=== PATIENT | female | born 1995 | race Caucasian/White ===

== ENCOUNTER 2018-03-09 17:10 | Emergency (ER) | payer OTHER ==
[~2018-03-09] VITALS: Ht 160 cm; Wt 52.3 kg
--- NOTE | 2018-03-09 18:15 | REP ---
Clinical: Trauma. Technique: AP, lateral, bilateral oblique and sunrise views left knee . Findings: The osseous structures and joint spaces are intact and normal. There is no evidence for acute fracture or dislocation. Surrounding soft tissues are unremarkable. No subcutaneous emphysema or radiodense foreign body. Impression: No acute fracture or dislocation. Electronically Signed by Alexei Leach MD 03/09/2018 06:06 P
[2018-03-09] MEDS ORDERED: NORCO, ANEXSIA 5/325MG TABLET (HYDROcodone/ACETAMINOPHEN) PO ONE (19:45)
[2018-03-09] MEDS ORDERED: NORCOTAB PO (20:07)
[2018-03-09 20:35] VITALS: BP 134/68
== END 2018-03-09 20:52 | disposition home or self-care (01) ==
LOC: M ED 17:10
DX: M25.562 Pain in left knee (principal); H91.90 Unspecified hearing loss, unspecified ear

== ENCOUNTER 2022-03-20 14:08 | Inpatient (IN) | payer OTHER ==
[~2022-03-20] VITALS: Ht 157.5 cm; Wt 61.0 kg
[~2022-03-20 14:08] MED LIST: HYDR-3715 PO
[2022-03-20] MEDS ORDERED: IBUP200C25 PO (14:35)
[2022-03-20] MEDS ORDERED: AMPICILLIN SOD/SULBACTAM SOD 3 GM in D5W MINI-BAG PLUS 100 ML IV ONE (17:55)
[2022-03-20] MEDS ORDERED: ONDANSETRON 4MG 2ML VIAL IV ONE (17:55)
[2022-03-20] MEDS: MORPHINE 4 MG/ML 1ML VIAL IV PRN ×2 (18:48→20:16)
[2022-03-20 18:51] LABS: BASO % 0.1 % (0.0-1.0); EOS # 0.1 10^3/uL (0.0-0.5); EOS % 0.3 % (0.0-3.0); HEMATOCRIT 34.3 % (36.0-47.0); HEMOGLOBIN 11.6 g/dl (12.0-15.5); LYMPH # 1.7 10^3/uL (1.5-5.0); LYMPH % 10.7 % (24.0-44.0); MEAN CORPUSCULAR HEMOGLOBIN 31.8 pg (27.0-33.0); MEAN CORPUSCULAR HGB CONC 33.8 g/dl (32.0-36.5); MONO # 1.1 10^3/uL (0.0-0.8); MONO % 6.6 % (2.0-8.0); NEUTROPHILS # 13.1 10^3/uL (1.5-8.5); NEUTROPHILS % 81.9 % (36.0-66.0); PLATELET COUNT, AUTOMATED 230 10^3/uL (150-450); RED BLOOD COUNT 3.65 10^6/uL (4.00-5.40)
[2022-03-20 19:14] LABS: ALBUMIN 3.7 G/DL (3.2-5.2); ALKALINE PHOSPHATASE 62 U/L (46-116); ALT/SGPT 12 U/L (7.0-40); AST/SGOT 13 U/L (<34); BILIRUBIN,DIRECT 0.1 MG/DL (<0.4); BILIRUBIN,TOTAL 0.3 MG/DL (0.3-1.2); BLOOD UREA NITROGEN < 5 MG/DL (9-23); CALCIUM LEVEL 9.3 MG/DL (8.5-10.1); CARBON DIOXIDE LEVEL 23 MMOL/L (20-31); CHLORIDE LEVEL 103 MMOL/L (98-107); CREATININE FOR GFR 0.42 MG/DL (0.55-1.30); GLOMERULAR FILTRATION RATE > 60.0 (>60); GLUCOSE, FASTING 94 MG/DL (60-100); POTASSIUM SERUM 3.9 MMOL/L (3.5-5.1); SODIUM LEVEL 137 MMOL/L (136-145)
[2022-03-20] MEDS ORDERED: ISOVUE-370 76% 100ML VIAL As Ordered ONE (19:44)
[2022-03-20] MEDS ORDERED: HOME MED LIST COMPLETE! XX SCH (21:35)
[2022-03-20] MEDS ORDERED: HYDROMORPHONE HCL 0.5 MG/ 0.5 ML SYRINGE IV PRN (21:40)
[2022-03-20 23:18] LABS: RSV AMPLIFICATION NEGATIVE (NEGATIVE)
[2022-03-20] MEDS ORDERED: LIDOCAINE VISCOUS 2% SOLN 15ML UDC SSP PRN (23:20)
[2022-03-20] MEDS ORDERED: NS 1,000 ML IV SCH (23:20)
[2022-03-20] MEDS ORDERED: ACETAMINOPHEN 1000MG 100ML IV BAG IV ONE (23:20)
[2022-03-21] MEDS ORDERED: HYDROMORPHONE HCL 0.5 MG/ 0.5 ML SYRINGE IV PRN ×2
[2022-03-21] MEDS: AMPICILLIN SOD/SULBACTAM SOD 3 GM in D5W MINI-BAG PLUS 100 ML IV SCH ×5 (00:23→23:25)
[2022-03-21] MEDS ORDERED: NICOTINE 21MG/24HR 1 EA TRANSDERMAL TD PRN (01:35)
[2022-03-21] MEDS: ACETAMINOPHEN 325MG/10.15ML UDC PO PRN ×3 (05:19→23:56)
[2022-03-21] MEDS: LIDOCAINE VISCOUS 2% SOLN 15ML UDC SSP PRN (06:12)
[2022-03-21 07:13] LABS: HEMATOCRIT 31.2 % (36.0-47.0); HEMOGLOBIN 10.2 g/dl (12.0-15.5); MEAN CORPUSCULAR HEMOGLOBIN 31.8 pg (27.0-33.0); MEAN CORPUSCULAR HGB CONC 32.7 g/dl (32.0-36.5); MEAN CORPUSCULAR VOLUME 97.2 fl (80.0-96.0); PLATELET COUNT, AUTOMATED 202 10^3/uL (150-450); RED BLOOD COUNT 3.21 10^6/uL (4.00-5.40); WHITE BLOOD COUNT 15.2 10^3/uL (4.0-10.0)
[2022-03-21 07:36] LABS: MAGNESIUM LEVEL 1.7 MG/DL (1.8-2.4)
[2022-03-21 07:58] LABS: BLOOD UREA NITROGEN < 5 MG/DL (9-23); CALCIUM LEVEL 8.8 MG/DL (8.5-10.1); CARBON DIOXIDE LEVEL 25 MMOL/L (20-31); CHLORIDE LEVEL 101 MMOL/L (98-107); GLOMERULAR FILTRATION RATE > 60.0 (>60); GLUCOSE, FASTING 177 MG/DL (60-100); POTASSIUM SERUM 4.3 MMOL/L (3.5-5.1); SODIUM LEVEL 134 MMOL/L (136-145)
[2022-03-21] MEDS ORDERED: KETOROLAC 30 MG/ML 1ML VIAL IV ONE (12:00)
[2022-03-21 15:00] VITALS: BP 133/70
[2022-03-21 20:00] VITALS: BP 121/66
[2022-03-21 21:00] VITALS: O2SAT 97
[2022-03-22] VITALS (10 sets, daily range): BP systolic 102–126; BP diastolic 51–72
[2022-03-22] MEDS: AMPICILLIN SOD/SULBACTAM SOD 3 GM in D5W MINI-BAG PLUS 100 ML IV SCH ×3 (05:55→18:33)
[2022-03-22] MEDS: ACETAMINOPHEN 325MG/10.15ML UDC PO PRN (05:55)
[2022-03-22 07:44] LABS: BASO % 0.2 % (0.0-1.0); EOS % 0.2 % (0.0-3.0); HEMATOCRIT 31.6 % (36.0-47.0); HEMOGLOBIN 10.5 g/dl (12.0-15.5); LYMPH # 2.8 10^3/uL (1.5-5.0); LYMPH % 12.2 % (24.0-44.0); MEAN CORPUSCULAR HEMOGLOBIN 31.7 pg (27.0-33.0); MEAN CORPUSCULAR HGB CONC 33.2 g/dl (32.0-36.5); MEAN CORPUSCULAR VOLUME 95.5 fl (80.0-96.0); MONO % 8.1 % (2.0-8.0); NEUTROPHILS # 17.7 10^3/uL (1.5-8.5); NEUTROPHILS % 78.7 % (36.0-66.0); PLATELET COUNT, AUTOMATED 258 10^3/uL (150-450); RED BLOOD COUNT 3.31 10^6/uL (4.00-5.40); WHITE BLOOD COUNT 22.5 10^3/uL (4.0-10.0)
[2022-03-22] MEDS: LIDOCAINE VISCOUS 2% SOLN 15ML UDC SSP PRN ×2 (07:59→12:03)
[2022-03-22 08:05] LABS: MAGNESIUM LEVEL 1.7 MG/DL (1.8-2.4)
[2022-03-22 08:07] LABS: BLOOD UREA NITROGEN 7 MG/DL (9-23); CALCIUM LEVEL 9.2 MG/DL (8.5-10.1); CARBON DIOXIDE LEVEL 27 MMOL/L (20-31); CHLORIDE LEVEL 104 MMOL/L (98-107); CREATININE FOR GFR 0.47 MG/DL (0.55-1.30); GLOMERULAR FILTRATION RATE > 60.0 (>60); GLUCOSE, FASTING 95 MG/DL (60-100); POTASSIUM SERUM 4.2 MMOL/L (3.5-5.1); SODIUM LEVEL 139 MMOL/L (136-145)
[2022-03-22 08:20] LABS: MONO # 1.8 10^3/uL (0.0-0.8)
[2022-03-22] MEDS: oxyCODONE 5MG TAB PO PRN (09:31)
[2022-03-22] MEDS ORDERED: ACETAMINOPHEN 500 MG TAB PO SCH (10:00)
[2022-03-22] MEDS ORDERED: ACETAMINOPHEN 325MG/10.15ML UDC PO PRN (12:10)
[2022-03-22] MEDS: MORPHINE 2 MG/ML 1ML VIAL IV PRN (13:18)
[2022-03-22] MEDS ORDERED: fentaNYL 100 MCG/2 ML INJECTION As Ordered ONE (16:45)
[2022-03-22] MEDS ORDERED: LIDOCAINE 2% 100MG/5ML SDV (FOR ANES.) As Ordered ONE (16:46)
[2022-03-22] MEDS ORDERED: ROCURONIUM BROMIDE 50MG/5ML VIAL As Ordered ONE (16:46)
[2022-03-22] MEDS ORDERED: propofoL 200 MG/20 ML VIAL As Ordered ONE (16:46)
[2022-03-22] MEDS ORDERED: LIDOCAINE 2% W/ EPINEPHRINE 1.7 ML DENTAL INJ As Ordered ONE (17:06)
[2022-03-22] MEDS ORDERED: ONDANSETRON 4MG 2ML VIAL As Ordered ONE (17:24)
[2022-03-22] MEDS ORDERED: KETOROLAC 60MG 2ML VIAL As Ordered ONE (17:24)
[2022-03-22] MEDS ORDERED: SUGAMMADEX SODIUM 500 MG/5 ML VIAL (BRIDION) As Ordered ONE (17:25)
[2022-03-22] MEDS ORDERED: oxyCODONE 5MG TAB PO PRN (17:55)
[2022-03-22] MEDS ORDERED: LR 1,000 ML IV SCH (17:55)
[2022-03-22] MEDS ORDERED: ONDANSETRON 4MG 2ML VIAL IV PRN (17:55)
[2022-03-22] MEDS ORDERED: fentaNYL 100 MCG/2 ML INJECTION IV PRN (17:55)
[2022-03-23] VITALS (7 sets, daily range): BP systolic 110–120; BP diastolic 51–59; O2SAT 97
[2022-03-23] MEDS: AMPICILLIN SOD/SULBACTAM SOD 3 GM in D5W MINI-BAG PLUS 100 ML IV SCH ×5 (00:07→23:34)
[2022-03-23] MEDS: oxyCODONE 5MG TAB PO PRN ×3 (00:08→23:34)
[2022-03-23] MEDS: MORPHINE 2 MG/ML 1ML VIAL IV PRN ×2 (02:55→10:04)
[2022-03-23] MEDS: LIDOCAINE VISCOUS 2% SOLN 15ML UDC SSP PRN ×2 (03:02→10:00)
[2022-03-23 06:43] LABS: BASO % 0.1 % (0.0-1.0); EOS # 0.1 10^3/uL (0.0-0.5); EOS % 0.7 % (0.0-3.0); HEMATOCRIT 28.2 % (36.0-47.0); HEMOGLOBIN 9.2 g/dl (12.0-15.5); MEAN CORPUSCULAR HEMOGLOBIN 31.2 pg (27.0-33.0); MEAN CORPUSCULAR HGB CONC 32.6 g/dl (32.0-36.5); MEAN CORPUSCULAR VOLUME 95.6 fl (80.0-96.0); MONO % 7.5 % (2.0-8.0); NEUTROPHILS # 9.4 10^3/uL (1.5-8.5); NEUTROPHILS % 69.4 % (36.0-66.0); PLATELET COUNT, AUTOMATED 242 10^3/uL (150-450); RED BLOOD COUNT 2.95 10^6/uL (4.00-5.40); WHITE BLOOD COUNT 13.6 10^3/uL (4.0-10.0)
[2022-03-23] MEDS ORDERED: oxyCODONE 5MG TAB PO ONE (07:00)
[2022-03-23 07:04] LABS: BLOOD UREA NITROGEN 8 MG/DL (9-23); CALCIUM LEVEL 8.4 MG/DL (8.5-10.1); CARBON DIOXIDE LEVEL 28 MMOL/L (20-31); CHLORIDE LEVEL 104 MMOL/L (98-107); GLOMERULAR FILTRATION RATE > 60.0 (>60); GLUCOSE, FASTING 83 MG/DL (60-100); POTASSIUM SERUM 4.3 MMOL/L (3.5-5.1); SODIUM LEVEL 139 MMOL/L (136-145)
[2022-03-23] MEDS ORDERED: MAG SULF 1GM/100ML (MAG RUN) 1 GM in IV 1 EA IV ONE (08:00)
[2022-03-23] MEDS: CHLORHEXIDINE GLUCONATE 0.12 % 15ML UDC (PERIDEX ORAL RINSE) SSP SCH ×3 (10:00→21:27)
[2022-03-23] MEDS ORDERED: KETOROLAC 30 MG/ML 1ML VIAL IV ONE (11:20)
[2022-03-23] MEDS ORDERED: MORPHINE 2 MG/ML 1ML VIAL IV PRN (21:20)
[2022-03-23] MEDS: OMEPRAZOLE 20MG CAP PO SCH (21:27)
[2022-03-23] MEDS: KETOROLAC 30 MG/ML 1ML VIAL IV SCH (21:29)
[2022-03-23] MEDS: SENOKOT S TAB PO PRN (23:34)
[2022-03-24 01:11] VITALS: O2SAT 98
[2022-03-24 02:00] VITALS: BP 107/61
[2022-03-24] MEDS: KETOROLAC 30 MG/ML 1ML VIAL IV SCH ×3 (05:59→21:52)
[2022-03-24] MEDS: AMPICILLIN SOD/SULBACTAM SOD 3 GM in D5W MINI-BAG PLUS 100 ML IV SCH (05:59)
[2022-03-24 06:00] VITALS: BP 110/61
[2022-03-24 07:17] LABS: BASO % 0.4 % (0.0-1.0); EOS # 0.2 10^3/uL (0.0-0.5); EOS % 3.2 % (0.0-3.0); HEMATOCRIT 26.6 % (36.0-47.0); HEMOGLOBIN 8.8 g/dl (12.0-15.5); LYMPH # 2.5 10^3/uL (1.5-5.0); LYMPH % 34.3 % (24.0-44.0); MEAN CORPUSCULAR HEMOGLOBIN 31.9 pg (27.0-33.0); MEAN CORPUSCULAR HGB CONC 33.1 g/dl (32.0-36.5); MEAN CORPUSCULAR VOLUME 96.4 fl (80.0-96.0); MONO # 0.6 10^3/uL (0.0-0.8); MONO % 7.9 % (2.0-8.0); NEUTROPHILS # 3.9 10^3/uL (1.5-8.5); NEUTROPHILS % 53.9 % (36.0-66.0); PLATELET COUNT, AUTOMATED 249 10^3/uL (150-450); RED BLOOD COUNT 2.76 10^6/uL (4.00-5.40); WHITE BLOOD COUNT 7.2 10^3/uL (4.0-10.0)
[2022-03-24] MEDS ORDERED: ISOVUE-370 76% 100ML VIAL As Ordered ONE (07:32)
[2022-03-24 07:42] LABS: BLOOD UREA NITROGEN 8 MG/DL (9-23); CALCIUM LEVEL 8.1 MG/DL (8.5-10.1); CARBON DIOXIDE LEVEL 26 MMOL/L (20-31); CHLORIDE LEVEL 103 MMOL/L (98-107); CREATININE FOR GFR 0.47 MG/DL (0.55-1.30); GLOMERULAR FILTRATION RATE > 60.0 (>60); GLUCOSE, FASTING 78 MG/DL (60-100); POTASSIUM SERUM 3.9 MMOL/L (3.5-5.1); SODIUM LEVEL 137 MMOL/L (136-145)
[2022-03-24] MEDS: DOCUSATE SODIUM 100MG CAPSULE PO SCH ×2 (09:00→21:53)
[2022-03-24] MEDS: CHLORHEXIDINE GLUCONATE 0.12 % 15ML UDC (PERIDEX ORAL RINSE) SSP SCH ×3 (09:13→21:51)
[2022-03-24] MEDS: oxyCODONE 5MG TAB PO PRN ×2 (09:14→15:27)
[2022-03-24] MEDS ORDERED: CHLORASEPTIC SPRAY MT PRN (13:25)
[2022-03-24] MEDS: CLINDAMYCIN 600 MG in IV 1 EA IV SCH ×2 (13:59→21:52)
[2022-03-24 14:00] VITALS: BP 124/60
[2022-03-24] MEDS: SENOKOT S TAB PO PRN (14:56)
[2022-03-24 15:07] VITALS: O2SAT 96
[2022-03-24] MEDS: LACTOBACILLUS ACIDOPHILUS CAP (BACID) PO SCH (17:51)
[2022-03-24] MEDS: OMEPRAZOLE 20MG CAP PO SCH (21:53)
[2022-03-24 22:00] VITALS: BP 119/60
[2022-03-25] MEDS: KETOROLAC 30 MG/ML 1ML VIAL IV SCH (05:30)
[2022-03-25] MEDS: CLINDAMYCIN 600 MG in IV 1 EA IV SCH ×2 (05:31→12:40)
[2022-03-25] MEDS: oxyCODONE 5MG TAB PO PRN ×2 (05:46→11:53)
[2022-03-25 06:11] VITALS: BP 125/60
[2022-03-25 07:10] LABS: BASO % 0.1 % (0.0-1.0); EOS # 0.3 10^3/uL (0.0-0.5); EOS % 4.5 % (0.0-3.0); HEMATOCRIT 27.7 % (36.0-47.0); HEMOGLOBIN 8.9 g/dl (12.0-15.5); LYMPH # 1.9 10^3/uL (1.5-5.0); LYMPH % 26.2 % (24.0-44.0); MEAN CORPUSCULAR HEMOGLOBIN 30.7 pg (27.0-33.0); MEAN CORPUSCULAR HGB CONC 32.1 g/dl (32.0-36.5); MEAN CORPUSCULAR VOLUME 95.5 fl (80.0-96.0); MONO # 0.6 10^3/uL (0.0-0.8); MONO % 8.5 % (2.0-8.0); NEUTROPHILS # 4.3 10^3/uL (1.5-8.5); NEUTROPHILS % 60.6 % (36.0-66.0); PLATELET COUNT, AUTOMATED 264 10^3/uL (150-450); WHITE BLOOD COUNT 7.2 10^3/uL (4.0-10.0)
[2022-03-25] MEDS: LACTOBACILLUS ACIDOPHILUS CAP (BACID) PO SCH (07:27)
[2022-03-25] MEDS: CHLORHEXIDINE GLUCONATE 0.12 % 15ML UDC (PERIDEX ORAL RINSE) SSP SCH (07:27)
[2022-03-25] MEDS: DOCUSATE SODIUM 100MG CAPSULE PO SCH (07:27)
[2022-03-25 07:30] LABS: BLOOD UREA NITROGEN 7 MG/DL (9-23); CALCIUM LEVEL 8.8 MG/DL (8.5-10.1); CARBON DIOXIDE LEVEL 26 MMOL/L (20-31); CHLORIDE LEVEL 105 MMOL/L (98-107); CREATININE FOR GFR 0.48 MG/DL (0.55-1.30); GLOMERULAR FILTRATION RATE > 60.0 (>60); GLUCOSE, FASTING 86 MG/DL (60-100); POTASSIUM SERUM 4.2 MMOL/L (3.5-5.1); SODIUM LEVEL 138 MMOL/L (136-145)
[2022-03-25] MEDS ORDERED: OXYC-517 PO (10:28)
[2022-03-25] MEDS ORDERED: PERI12LIQ SSP (10:28)
[2022-03-25] MEDS ORDERED: LIDO2SO SSP (10:28)
[2022-03-25] MEDS ORDERED: OMEP-173 PO (10:28)
[2022-03-25] MEDS ORDERED: RISATAB3 PO (10:28)
[2022-03-25] MEDS ORDERED: CLEO300C2 PO (10:35)
[2022-03-25] MEDS ORDERED: CLEO150C PO (10:35)
[2022-03-25 13:33] VITALS: BP 131/79
== END 2022-03-25 14:14 | disposition home or self-care (01) | DRG 566 ==
LOC: M ED 17:06 → M ED INP 23:18 → ENRESERV 03-21 13:59 → M MSPAV 03-21 14:55
PROVIDERS: ADMIT Internal Medicine; ATTEND Internal Medicine Nephrology
PROC: 0CDXXZ0 Extraction of Lower Tooth, Single, External Approach (ICD-10-PCS; principal; 2022-03-22 16:00)
DX: O99.611 Diseases of the digestive system complicating pregnancy, first trimester (principal); L03.221 Cellulitis of neck; K12.2 Cellulitis and abscess of mouth; J02.9 Acute pharyngitis, unspecified; K02.9 Dental caries, unspecified; H91.90 Unspecified hearing loss, unspecified ear; Z3A.12 12 weeks gestation of pregnancy; O99.711 Diseases of the skin and subcutaneous tissue complicating pregnancy, first trimester; F17.200 Nicotine dependence, unspecified, uncomplicated; O99.331 Smoking (tobacco) complicating pregnancy, first trimester

== ENCOUNTER 2022-10-20 03:40 | Emergency (ER) | payer OTHER, SELFPAY ==
[~2022-10-20] VITALS: Ht 160 cm; Wt 48.6 kg
[~2022-10-20 03:40] MED LIST changes: +CLEO150C PO; +CLEO300C2 PO; +IBUP200C25 PO; +LIDO15SO2 SSP; +OMEP-173 PO; +OXYC-517 PO; +PERI12LIQ SSP; +RISATAB3 PO
[2022-10-20 04:41] LABS: HEMATOCRIT 37.1 % (36.0-47.0); HEMOGLOBIN 12.7 g/dl (12.0-15.5); MEAN CORPUSCULAR HEMOGLOBIN 31.4 pg (27.0-33.0); MEAN CORPUSCULAR HGB CONC 34.2 g/dl (32.0-36.5); MEAN CORPUSCULAR VOLUME 91.8 fl (80.0-96.0); PLATELET COUNT, AUTOMATED 254 10^3/uL (150-450); RED BLOOD COUNT 4.04 10^6/uL (4.00-5.40); WHITE BLOOD COUNT 6.7 10^3/uL (4.0-10.0)
[2022-10-20 05:05] LABS: ETHYL ALCOHOL (ETHANOL) < 0.003 % (0.000-0.010); HCG, SERUM QUALITATIVE NEGATIVE (NEGATIVE)
[2022-10-20 05:06] LABS: ACETAMINOPHEN LEVEL < 2.0 UG/ML (10.0-20.0)
[2022-10-20 05:07] LABS: ALBUMIN 4.2 G/DL (3.2-5.2); ALKALINE PHOSPHATASE 91 U/L (46-116); ALT/SGPT < 9 U/L (7.0-40); AST/SGOT < 8 U/L (<34); BILIRUBIN,DIRECT 0.1 MG/DL (<0.4); BILIRUBIN,TOTAL 0.3 MG/DL (0.3-1.2); BLOOD UREA NITROGEN 6 MG/DL (9-23); CALCIUM LEVEL 9.6 MG/DL (8.5-10.1); CARBON DIOXIDE LEVEL 23 MMOL/L (20-31); CHLORIDE LEVEL 107 MMOL/L (98-107); CREATININE FOR GFR 0.62 MG/DL (0.55-1.30); GLOMERULAR FILTRATION RATE > 60.0 (>60); GLUCOSE, FASTING 92 MG/DL (60-100); POTASSIUM SERUM 4.1 MMOL/L (3.5-5.1); SODIUM LEVEL 139 MMOL/L (136-145); TOTAL PROTEIN 7.2 G/DL (5.7-8.2)
[2022-10-20 05:09] LABS: THYROID STIMULATING HORMONE 1.128 uIU/ML (0.55-4.78)
[2022-10-20 05:11] LABS: SALICYLATE LEVEL < 3.0 MG/DL (<30)
[2022-10-20] MEDS ORDERED: BOOSTRIX VACCINE (TETANUS/DIPHTH/ACEL. PERTUSSIS) 0.5ML SYR IM.IMMUN ONE (09:30)
[2022-10-20] MEDS ORDERED: DERMABOND TOPICAL SKIN ADHESIVE TOP ONE (09:30)
[2022-10-20 10:15] VITALS: BP 125/81; TEMP 98.2; O2SAT 100
== END 2022-10-20 10:32 | disposition home or self-care (01) ==
LOC: M ED 03:40 → EDBD 03:40 → M ED 10:32
DX: T43.621A Poisoning by amphetamines, accidental (unintentional), initial encounter (principal); S41.112A Laceration without foreign body of left upper arm, initial encounter; Y28.1XXA Contact with knife, undetermined intent, initial encounter; Z79.899 Other long term (current) drug therapy

== ENCOUNTER 2023-10-16 08:51 | Outpatient (CLI) | payer SELFPAY ==
[~2023-10-16] VITALS: Ht 160 cm; Wt 63.5 kg
[~2023-10-16 08:51] MED LIST changes: -LIDO15SO2 SSP; +LIDO15SO9 SSP
[2023-10-16 09:07] VITALS: BP 159/90
[2023-10-16] MEDS: ONDANSETRON 4MG ORAL DISINTEGRATING TAB SL STA (10:10)
[2023-10-16 10:24] VITALS: BP 126/60; O2SAT 98
[2023-10-16] MEDS: LR 1,000 ML IV SCH (10:55)
[2023-10-16] MEDS: cloNIDine 0.1MG TABLET PO ONE ×2 (10:56→14:10)
[2023-10-16 11:50] LABS: HEMATOCRIT 28.9 % (36.0-47.0); HEMOGLOBIN 9.3 g/dl (12.0-15.5); MEAN CORPUSCULAR HEMOGLOBIN 27.8 pg (27.0-33.0); MEAN CORPUSCULAR HGB CONC 32.2 g/dl (32.0-36.5); MEAN CORPUSCULAR VOLUME 86.3 fl (80.0-96.0); PLATELET COUNT, AUTOMATED 255 10^3/uL (150-450); RED BLOOD COUNT 3.35 10^6/uL (4.00-5.40); WHITE BLOOD COUNT 8.1 10^3/uL (4.0-10.0)
[2023-10-16 11:58] LABS: TOTAL PROTEIN,RANDOM URINE 25.3 MG/DL (0.0-14.0)
[2023-10-16 12:00] LABS: BARBITURATES URINE REFLEX NEGATIVE (NEGATIVE); COCAINE METABOLITE URINE REFLE NEGATIVE (NEGATIVE); METHADONE URINE REFLEX NEGATIVE (NEGATIVE); OPIATES URINE REFLEX NEGATIVE (NEGATIVE); PHENCYCLIDINE URINE REFLEX NEGATIVE (NEGATIVE)
[2023-10-16 12:01] VITALS: BP 129/61
[2023-10-16 12:01] LABS: BENZODIAZEPINES URINE REFLEX NEGATIVE (NEGATIVE)
[2023-10-16 12:02] LABS: CREATININE,RANDOM URINE 72.8 MG/DL
[2023-10-16 12:13] LABS: AMPHETAMINES URINE REFLEX PENDING CONFIRMATION (NEGATIVE)
[2023-10-16 12:14] LABS: CANNABINOIDS URINE REFLEX PENDING CONFIRMATION (NEGATIVE)
[2023-10-16 12:28] LABS: ALT/SGPT 41 U/L (7.0-40); AST/SGOT 32 U/L (<34); BILIRUBIN,TOTAL 0.3 MG/DL (0.3-1.2); CREATININE FOR GFR 0.51 MG/DL (0.55-1.30); GLOMERULAR FILTRATION RATE > 60.0 (>60); LDH LACTATE DEHYDROGENASE 269 U/L (120-246)
[2023-10-16 12:29] LABS: URIC ACID 4.8 MG/DL (3.1-7.8)
[2023-10-16 12:43] LABS: HEPATITIS B SURFACE ANTIGEN NEGATIVE (NEGATIVE)
[2023-10-16 12:56] LABS: HIV 1&2 SCREEN NEGATIVE (NEGATIVE)
[2023-10-16 13:03] LABS: HEPATITIS C VIRUS ABY INDEX < 0.02 INDEX (<0.8)
[2023-10-16 13:12] LABS: Trichomonas vaginalis (AMP) NOT DETECTED (NEGATIVE)
[2023-10-16 13:36] LABS: GC DNA AMPLIFICATION NEGATIVE (NEGATIVE)
[2023-10-16 14:08] VITALS: BP 126/66
[2023-10-16] MEDS: BETAMETHASONE SOLUSPAN 6MG/ML 5ML VIAL IM SCH (15:43)
[2023-10-16 15:55] LABS: HEMOGLOBIN A1c 5.2 % (4.0-6.0)
[2023-10-16] MEDS: cloNIDine 0.2 MG TAB PO ONE ×2 (17:05→22:24)
[2023-10-16] MEDS: ONDANSETRON 4MG ORAL DISINTEGRATING TAB PO PRN (17:17)
[2023-10-16 22:00] VITALS: BP 113/61; O2SAT 97
[2023-10-17] MEDS ORDERED: UNRESOLVED CLARIFICATION ENTRY XX SCH (00:01)
[2023-10-17 02:00] VITALS: BP 130/64; O2SAT 98
[2023-10-17] MEDS: LR 500 ML IV ONE (03:14)
[2023-10-17 06:00] VITALS: BP 137/66; O2SAT 98
[2023-10-17] MEDS: cloNIDine 0.2 MG TAB PO SCH (08:51)
[2023-10-17 09:00] VITALS: BP 110/56
[2023-10-17 09:28] VITALS: BP 110/56; TEMP 98.1; O2SAT 98
[2023-10-17] MEDS ORDERED: LOPERAMIDE 2 MG CAPLET PO PRN (11:30)
[2023-10-17] MEDS: METOCLOPRAMIDE INJ 10MG/2ML VIAL IV SCH (12:25)
[2023-10-17 18:00] VITALS: BP 109/69; O2SAT 100
[2023-10-17 21:48] VITALS: BP 131/72; O2SAT 100
[2023-10-17] MEDS: LORazepam 2 MG/ML 1ML VIAL IV PRN (23:08)
[2023-10-18 05:50] VITALS: BP 110/70; O2SAT 98
[2023-10-18 08:00] VITALS: O2SAT 100
[2023-10-18 09:48] VITALS: BP_SYST 110; BP_SYST 94; BP_DIAS 52; BP_DIAS 70; O2SAT 100
[2023-10-18] MEDS: SLF 3 ML SYR IV PRN (11:40)
[2023-10-18 14:00] VITALS: BP 131/61; O2SAT 98
[2023-10-18] MEDS: SLF 3 ML SYR IV SCH (14:00)
[2023-10-18] MEDS ORDERED: HOME MED LIST COMPLETE! XX SCH (15:30)
[2023-10-18 23:09] LABS: Amphetamine Positive (.); Amphetamines Positive (.); Cannabinoid Positive (.); Carboxy THC Conf, MS, UR 92 ng/mL (Cutoff=10); GC Amphetamine 685 ng/mL (Cutoff=500); GC Methamphetam 4673 ng/mL (Cutoff=500); Methamphetamine Positive (.)
[2023-10-20] MEDS ORDERED: BUPR8SUB PO (09:38)
== END 2023-10-18 17:55 | disposition home or self-care (01) ==
LOC: M LDO 08:51 → M OBS 18:30 → M LDO 10-18 17:55
PROVIDERS: ATTEND Advanced Practice Midwife
DX: O26.893 Other specified pregnancy related conditions, third trimester (principal); O21.8 Other vomiting complicating pregnancy; O99.323 Drug use complicating pregnancy, third trimester; O09.33 Supervision of pregnancy with insufficient antenatal care, third trimester; O09.293 Supervision of pregnancy with other poor reproductive or obstetric history, third trimester; O99.333 Smoking (tobacco) complicating pregnancy, third trimester; O99.893 Other specified diseases and conditions complicating puerperium; R03.0 Elevated blood-pressure reading, without diagnosis of hypertension; F11.23 Opioid dependence with withdrawal; F15.23 Other stimulant dependence with withdrawal; H91.3 Deaf nonspeaking, not elsewhere classified; F17.210 Nicotine dependence, cigarettes, uncomplicated; Z3A.36 36 weeks gestation of pregnancy
CPT/HCPCS: 59025; 76811; 76819; 76820; 80307; 82247; 82570; 83036; 83615; 84156; 84450; 84460; 84550; 85027; 86762; 86780; 86803; 86850; 86900; 86901; 87086; 87340; 87389; 87661; 87810; 87850; 96372; 96374; 96375; G0463; G0480; J0702; J2060; J2765